=== PATIENT | male | born 1990 | race African-American/Black ===

== ENCOUNTER 2016-10-21 05:52 | Emergency (ER) | payer SELFPAY | END 2016-10-21 07:01 | disposition home or self-care (01) | LOC: CED 05:52 | DX: J45.901 Unspecified asthma with (acute) exacerbation (principal); F17.200 Nicotine dependence, unspecified, uncomplicated; Z88.0 Allergy status to penicillin | CPT/HCPCS: 94640; 99283 ==

== ENCOUNTER 2016-10-21 15:23 | Emergency (ER) | payer SELFPAY ==
--- NOTE | ~2016-10-21 | CR72 ---
[facility] A Service of [facility] RADIOLOGY TEXT RESULTS PATIENT: LAURA GARDNER LOCATION: [facility] : 86 UNIT #: [id number] AGE: [address]: Luc Souza MD SEX: M ORDER DR: [id number] [facility] [address] [place], [place] [address] [id number] E MR#: [id number] Acc #: [id number] NAME: LAURA GARDNER : 1990 SEX: M STUDY DATE/TIME: 10/21/2016 15:19 UNIT: [facility] ROOM: STUDY DESCRIPTION: CR Chest Single View Portable Attending Physician: Luc Souza M.D. Ordering Physician: Luc Souza M.D. Primary Care Physician: Primary Care Physician No MEDICAL IMAGING REPORT This report is preliminary unless electronic signature is present EXAM Portable chest, 10/21/2016 HISTORY Shortness of breath, cough and chest congestion beginning 10/20/2016, asthma, smoking history for 10 years. FINDINGS A single AP portable view of the chest shows both lungs to be clear. The heart is normal in size. The mediastinal contour is normal. No significant bone abnormalities are seen. IMPRESSION Normal portable chest. Dictated by... Alejandro Lainez M.D. THIS IS AN ELECTRONICALLY VERIFIED REPORT Alejandro Lainez M.D. at 10/22/2016 10:26 AM JULIA/mitch TD: 10/21/2016 18:19 JOB #: [id number] MEDICAL IMAGING REPORT Page 1 of 1 COPY
[2016-10-21 16:05] LABS: BASOPHIL% 0.3 % (0-2.5); DIFF IND NO; HEMATOCRIT 46.5 % (38.0-50.0); HEMOGLOBIN 14.5 gm/dL (13.0-16.0); LYMPHOCYTE# 0.5 X10e3 (1.0-3.5); LYMPHOCYTE% 7.3 % (17.0-45.0); MEAN CELL VOLUME 81.3 FL (83-96); MEAN CORPUSCULAR HEMOGLOBIN 25.4 PG (28-34); MEAN CORPUSCULAR HGB CONC 31.2 g/dL (30-36); MEAN PLATELET VOLUME 8.8 FL (6.5-11.5); MONOCYTE# 0.2 X10e3 (0-1.0); NEUTROPHIL# 6.6 X10e3 (1.5-7.1); NEUTROPHIL% 89.4 % (40-75); PLATELET COUNT 212 X10e3 (140-420); RED BLOOD COUNT 5.73 X10e (3.90-5.60); RED CELL DISTRIBUTION WIDTH 15.3 % (11.0-15.5); WHITE BLOOD COUNT 7.4 X10e3 (4.0-10.5)
[2016-10-21 16:30] LABS: BUN/CREATININE RATIO 6.36; CALCIUM SERUM 9.8 mg/dL (8.4-10.2); CREATININE SERUM 1.1 mg/dL (0.6-1.4); GLOM FILT RATE Estimated 105.3 mL/min (>60); POTASSIUM 4.2 mmol/L (3.5-5.1)
== END 2016-10-21 17:45 | disposition home or self-care (01) ==
LOC: CED 15:23
PROVIDERS: Emergency Medicine
DX: J45.901 Unspecified asthma with (acute) exacerbation (principal); F17.200 Nicotine dependence, unspecified, uncomplicated; Z88.0 Allergy status to penicillin
CPT/HCPCS: 71010; 80048; 85025; 94640; 99284

== ENCOUNTER → 2016-10-21 21:00 | Emergency (ER) | payer SELFPAY | END | disposition left against medical advice (07) | LOC: CED 21:00 | DX: Z53.21 Procedure and treatment not carried out due to patient leaving prior to being seen by health care provider (principal) ==

== ENCOUNTER 2016-12-09 08:08 | Emergency (ER) | payer OTHER | END 2016-12-09 09:05 | disposition home or self-care (01) | LOC: CED 08:08 | DX: J45.901 Unspecified asthma with (acute) exacerbation (principal); R56.9 Unspecified convulsions; F17.200 Nicotine dependence, unspecified, uncomplicated; Z88.0 Allergy status to penicillin | CPT/HCPCS: 99282; 99283 ==

== ENCOUNTER 2016-12-22 12:48 | Emergency (ER) | payer OTHER ==
--- NOTE | ~2016-12-22 | CR63 ---
[facility] A Service of [facility] RADIOLOGY TEXT RESULTS PATIENT: LAURA GARDNER LOCATION: [facility] : 86 UNIT #: [id number] AGE: [address]: Juan Thakur DO SEX: M ORDER DR: [id number] [facility] [address] [place], [place] [address] [id number] E MR#: [id number] Acc #: [id number] NAME: LAURA GARDNER : 1990 SEX: M STUDY DATE/TIME: 12/22/2016 14:27 UNIT: [facility] ROOM: STUDY DESCRIPTION: CR Chest 2 View Attending Physician: Juan Thakur D.O. Ordering Physician: Juan Thakur D.O. Primary Care Physician: No Primary Care Physician MEDICAL IMAGING REPORT This report is preliminary unless electronic signature is present EXAM Chest 2 views dated 12/22/16. COMPARISON Single view chest dated 10/21/2016. HISTORY Productive cough for 3 days. Evaluate for pneumonia. Chest pain with cough and chest tightness. FINDINGS Two views of the chest were obtained. Lungs are hyperinflated, likely related to deep inspiration in this young individual. Calcified right hilar lymph nodes are noted suggestive of old granulomatous disease, stable. Smaller lymph nodes in the left cannot be excluded. Heart size is within normal limits. Spine is unremarkable. Dictated by... Jeannette Lezama M.D. THIS IS AN ELECTRONICALLY VERIFIED REPORT Jeannette Lezama M.D. at 12/24/2016 5:09 PM CPR/ea TD: 12/22/2016 20:42 JOB #: [id number] MEDICAL IMAGING REPORT Page 1 of 1 COPY
[2016-12-22 14:32] LABS: BUN/CREATININE RATIO 7.5; CALCIUM SERUM 8.9 mg/dL (8.4-10.2); CREATININE SERUM 1.2 mg/dL (0.6-1.4); GLOM FILT RATE Estimated 94.8 mL/min (>60); POTASSIUM 4.2 mmol/L (3.5-5.1)
[2016-12-22 15:26] LABS: POC - CKMB 3.2 ng/mL (0.0-7.9); POC - TROPONIN <0.05 ng/mL (<=0.05)
== END 2016-12-22 15:45 | disposition home or self-care (01) ==
LOC: CED 12:48
PROVIDERS: Emergency Medicine
DX: J45.909 Unspecified asthma, uncomplicated (principal); J06.9 Acute upper respiratory infection, unspecified; Z88.0 Allergy status to penicillin
CPT/HCPCS: 71020; 80048; 82553; 84484; 85379; 99283